=== PATIENT | female | born 1975 | race Hispanic/Latino ===

== ENCOUNTER 2020-11-21 13:38 | Outpatient (CLI) | payer OTHER, SELFPAY ==
--- NOTE | 2020-11-21 15:00 | NEURO_ITS ---
Impression: # Complains of right anterior thigh numbness # Normal nerve conduction study of lower extremities including motor and sensory nerves. # Normal needle/EMG exam. # Patchy numbness of thigh needs to be evaluated by MRI of lumbar spine or higher up. Nerve Conduction Studies Anti Sensory Summary Table Stim Site NR Peak (ms) P-T Amp (?V) Site1 Site2 Delta-P (ms) Dist (cm) Isaiah (m/s) Right Sup Fibular Anti Sensory (Ant Lat Mall) 14 cm 3.7 10.0 14 cm Ant Lat Mall 3.7 16.0 43 Right Sural Anti Sensory (Lat Mall) Calf 3.3 16.3 Calf Lat Mall 3.3 16.0 48 Motor Summary Table Stim Site NR Onset (ms) O-P Amp (mV) Site1 Site2 Delta-0 (ms) Dist (cm) Isaiah (m/s) Right Peroneal Motor (Vastus Med) Ankle 3.6 3.9 Popit Ankle 6.9 37.0 54 Popit 10.5 2.9 Right Tibial Motor (Abd Correa Brev) Ankle 3.8 3.7 Knee Ankle 7.9 41.0 52 Knee 11.7 2.1 F Wave Studies NR F-Lat (ms) L-R F-Lat (ms) Right Peroneal (Mrkrs) (EDB) 48.25 Right Tibial (Mrkrs) (Abd Hallucis) 48.59 EMG Side Muscle Nerve Root Ins Act Fibs Amp Dur Recrt Comment Right AntTibialis Dp Br Fibular L4-5 Nml Nml Nml Nml Nml Right Gastroc Tibial S1-2 Nml Nml Nml Nml Nml Right Fibularis Long Sup Br Fibular L5-S1 Nml Nml Nml Nml Nml Right Flex Dig Long Tibial L5-S2 Nml Nml Nml Nml Nml Right Ext Dig Brev Dp Br Fibular L5, S1 Nml Nml Nml Nml Nml MTDD
== END 2020-11-21 13:39 | disposition home or self-care (01) ==
PROVIDERS: PCP Physician Assistant; Visit Provider Physician Assistant
DX: R20.2 Paresthesia of skin (principal)
CPT/HCPCS: 95886; 95908

== ENCOUNTER 2021-10-12 12:40 | Emergency (ER) | payer SELFPAY ==
[2021-10-12] VITALS (18 sets, daily range): BP systolic 87–136; BP diastolic 57–78; PULSE 68–78; RESP 16–18; TEMP 36.4; O2SAT 99–100
--- NOTE | ~2021-10-12 | CT_ITS ---
EXAMINATION: CT abdomen pelvis w con DATE: 10/12/2021 15:29 INDICATION: Right lower quadrant abdominal pain. TECHNIQUE: Computed tomography (CT) of the abdomen and pelvis was performed with 100 mL Omnipaque 350 intravenous contrast. Automated exposure control and iterative reconstruction technique were employe d. The dose-length product was 1319.61 mGy-cm. COMPARISON: None. FINDINGS: The visualized portions of the lung bases demonstrate mild atelectasis. No pleural effusion . The heart size is normal. No pericardial effusion. The liver, gallbladder, spleen, pancreas, adrena l glands, and kidneys are normal. Tubal ligation clips are noted. There is a 2.9 cm cyst in right adn exa, likely a dominant follicle. There are nabothian cysts in the cervix. There are no dilated loops of bowel. The appendix is normal. There are no pathologically enlarged lymph nodes. There is no free intraperitoneal fluid. There is severe lower lumbar spondylosis. IMPRESSION: 1. No specific etiology for the patient's symptoms. Reviewed, dictated and finalized at location A. SSIONS GATE ATTENDANT
[2021-10-12 13:42] LABS: Add Urine Microscopic? NO; Appearance Urine Clear (Clear); Bilirubin Urine Negative (Negative); Blood Urine Negative (Negative); Color Urine Straw (Yellow); Glucose Urine UA Negative (Negative); Ketones Urine Negative (Negative); Leukocyte Esterase Ur Negative LEU/UL (Negative); Nitrate Urine Negative (Negative); Protein Urine Negative (Negative); Urobilinogen Urine Negative mg/dL (<2.0)
[2021-10-12 13:49] LABS: Specific Grav Ur 1.001 (1.001-1.035)
[2021-10-12 14:17] LABS: Basophils Percent Auto 0.6 % (0.2-1.2); Eosinophils Absolute Auto 0.2 K/mm3 (0-0.3); Eosinophils Percent Auto 2.1 % (0-4.4); Hematocrit 32.7 % (37.0-47.0); Hemoglobin 9.9 g/dL (12.0-15.0); Immature Granulocyte Absolute 0.04 K/mm3 (0.00-0.031); Immature Granulocyte Percent A 0.6 % (0-0.5); Lymphocytes Absolute Auto 1.76 K/mm3 (0.9-3.2); Lymphocytes Percent Auto 24.5 % (18.3-44.2); Mean Corpuscular HGB Conc 30.3 g/dl (32-36); Mean Corpuscular Hemoglobin 23.2 pg (26-34); Mean Corpuscular Volume 76.6 fl (80-100); Mean Platelet Volume 10.3 fl (7.4-10.4); Monocytes Absolute Auto 0.5 K/mm3 (0.1-0.6); Monocytes Percent Auto 7.4 % (2.6-8.5); Neutrophils Absolute Auto 4.7 K/mm3 (1.3-6.7); Neutrophils Percent Auto 64.8 % (45.5-73.1); Platelet Count Result 273 k/mm3 (150-375); Red Blood Count 4.27 M/mm3 (4.2-5.4); Red Cell Distribution Width 17.9 % (11.5-14.5); White Blood Count 7.2 K/mm3 (4.5-10.0)
[2021-10-12 14:36] LABS: Alanine Aminotransferase 17 U/L (4-35); Albumin Level 3.9 g/dL (3.5-5.1); Alkaline Phosphatase 93 U/L (38-126); Anion Gap 8 mmol/L (8-16); Aspartate Amino Transferase 25 U/L (14-36); Bilirubin,Total 0.3 mg/dL (0.2-1.3); Blood Urea Nitrogen 9 mg/dL (7-17); Calcium 8.7 mg/dL (8.4-10.2); Carbon Dioxide 25 mmol/L (22-30); Chloride 103 mmol/L (98-107); Estimated CRCL calculation 145 ml/min; Estimated Glomerular Filt Rate > 60; Glucose 94 mg/dL (65-110); Potassium 3.6 mmol/L (3.4-5.0); Sodium 136 mmol/L (137-145)
--- NOTE | 2021-10-12 15:18 | ED.BACK ---
HPI - Back Pain/Injury General Chief Complaint: Back Pain/Injury Stated Complaint: back pain Time Seen by Provider: 10/12/21 13:07 Source: patient and RN notes reviewed Mode of arrival: ambulatory Limitations: no limitations History of Present Illness HPI Narrative: This is a 46 year old female who presents for evaluation right lower back pain. Her pain started suddenly 4 hours ago while she was at work. Her pain has been intermittent. Initially her pain was sharp and now she describes as contractions. She is having left lower back pain that radiates to right lower abdomen with associated nausea and dizziness. She denies fever or chills. She denies hematuria, dysuria or dark urine. She denies history of ovarian cyst or kidney stone. She has not taken anything for pain but her pain has improved. She rates pain as 3/10. Related Data Home Medications Medication Instructions Recorded Confirmed No Home Medications 10/12/21 10/12/21 Allergies Allergy/AdvReac Type Severity Reaction Status Date / Time No Known Allergies Allergy Unverified 10/12/21 12:42 Review of Systems Review of Systems: All systems reviewed & are unremarkable except as noted in HPI and below PMFSH Past Medical History Medical History (Updated 10/12/21 @ 16:06 by Nya Felix MD) Anemia Surgical History Surgical History (Updated 10/12/21 @ 15:28 by Nya Felix MD) Hx of tubal ligation Social History Social History (Updated 10/12/21 @ 15:28 by Nya Felix MD) Smoking status: Never smoker Exam Const: General: no acute distress and alert Orientation/consciousness: patient oriented x3 Eyes: EOM: EOMs intact bilaterally Resp: Effort & Inspection: normal respiratory effort and no retractions Auscultation: clear to auscultation bilaterally Cardio: Rate: regular rate Rhythm: regular rhythm Heart sounds: no murmurs GI: GI Palp: Yes Soft to palpation, Yes Tenderness to palpation present (GI) and No Guarding due to palpation present (GI) Auscultation: normal bowel sounds : General: Yes no CVA tenderness Back/Spine/Pelvis: Back: no CVA tenderness Skin: General skin exam: normal color, no jaundice and no pallor Rashes: rash noted Wounds: no wounds and no wounds noted Neuro: General: patient oriented x3, moves all extremities and CN's II-XI intact bilaterally Extrem: General: normal to inspection Psych: Mental Status: mental status grossly normal Affect: normal affect Course Reevaluation(s) Reevaluation #1: I discussed with patient the she was found to have ovarian cyst. She is reporting that she was diagnosed with ovarian cyst before and she had some kind of evaluation. She is unable to described completely who she saw or how it was evaluated. 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 Date: 10/12/21 Time: 16:03 Vital Signs Vital signs: Vital Signs Temperature 97.6 F 10/12/21 12:42 Pulse Rate 68 10/12/21 12:42 Respiratory Rate 16 10/12/21 12:42 Blood Pressure 136/68 10/12/21 12:42 Pulse Oximetry 100 10/12/21 12:42 Temperature 97.6 F 10/12/21 12:42 Pulse Rate 68 10/12/21 16:18 Respiratory Rate 18 10/12/21 16:18 Blood Pressure 102/78 10/12/21 16:18 Pulse Oximetry 99 10/12/21 16:18 MDM - Back Pain/Injury Lab Data Attestation: I reviewed the patient's lab results. Result diagrams: 10/12/21 14:04 10/12/21 14:05 Labs: Lab Results 10/12/21 10/12/21 10/12/21 Range/Units 13:17 14:04 14:05 WBC 7.2 (4.5-10.0) K/mm3 RBC 4.27 (4.2-5.4) M/mm3 Hgb 9.9 L (12.0-15.0) g/dL Hct 32.7 L (37.0-47.0) % MCV 76.6 L (80-100) fl MCH 23.2 L (26-34) pg MCHC 30.3 L (32-36) g/dl RDW 17.9 H (11.5-14.5) % Plt Count 273 (150-375) k/mm3 MPV 10.3 (7.4-10.4) fl Immature Gran % (Auto) 0.6 H (0-0.5) % Neut % (Auto) 64.8 (45.5-73.1) % Lymph % (Auto) 24.5 (18.3-44.2) %
== END 2021-10-12 16:22 | disposition home or self-care (01) ==
PROVIDERS: Emergency Provider General Practice; PCP Physician Assistant
DX: N83.201 Unspecified ovarian cyst, right side (principal); R10.9 Unspecified abdominal pain; D64.9 Anemia, unspecified; Z98.51 Tubal ligation status
CPT/HCPCS: 36415; 74177; 80053; 81003; 81025; 85025; 99284; Q9967

== ENCOUNTER 2024-03-16 15:29 | Emergency (ER) | payer OTHER, SELFPAY ==
--- NOTE | ~2024-03-16 | XR_ITS ---
EXAMINATION: XR chest 2V DATE: 03/16/2024 16:13 INDICATION: Chest pain. TECHNIQUE: Frontal and lateral views of the chest were obtained. COMPARISON: CT abdomen and pelvis 10/12/2021 FINDINGS: There is no pneumonia, pleural effusion, or pneumothorax. The heart size is normal. There i s mild chronic anterior wedging of multiple thoracic vertebral bodies. IMPRESSION: 1. No acute cardiopulmonary disease. Reviewed, dictated and finalized at location A.
[2024-03-16 15:32] VITALS: BP 131/73; PULSE 16; RESP 16; TEMP 36.6; O2SAT 100
--- NOTE | 2024-03-16 15:34 | ECG_ITS ---
SEE SCANNED COPY FOR CONFIRMED REPORT MTDD
[2024-03-16 15:53] LABS: Basophils Percent Auto 0.6 % (0.2-1.2); Eosinophils Absolute Auto 0.4 K/mm3 (0-0.3); Eosinophils Percent Auto 5.8 % (0-4.4); Hematocrit 27.2 % (37.0-47.0); Hemoglobin 7.7 g/dL (12.0-15.0); Immature Granulocyte Absolute 0.03 K/mm3 (0.00-0.031); Immature Granulocyte Percent A 0.5 % (0-0.5); Lymphocytes Absolute Auto 1.67 K/mm3 (0.9-3.2); Lymphocytes Percent Auto 26.3 % (18.3-44.2); Mean Corpuscular HGB Conc 28.3 g/dl (32-36); Mean Corpuscular Hemoglobin 19.7 pg (26-34); Mean Corpuscular Volume 69.6 fl (80-100); Monocytes Absolute Auto 0.4 K/mm3 (0.1-0.6); Monocytes Percent Auto 6.3 % (2.6-8.5); Neutrophils Absolute Auto 3.8 K/mm3 (1.3-6.7); Neutrophils Percent Auto 60.5 % (45.5-73.1); Platelet Count Result 308 k/mm3 (150-375); Red Blood Count 3.91 M/mm3 (4.2-5.4); Red Cell Distribution Width 18.8 % (11.5-14.5); White Blood Count 6.3 K/mm3 (4.5-10.0)
[2024-03-16 16:03] LABS: Alanine Aminotransferase 16 U/L (6-35); Albumin Level 4.2 g/dL (3.5-5.1); Alkaline Phosphatase 89 U/L (38-126); Anion Gap 7 mmol/L (4-12); Aspartate Amino Transferase 23 U/L (14-36); Bilirubin,Total 0.3 mg/dL (0.2-1.3); Blood Urea Nitrogen 11 mg/dL (7-17); Carbon Dioxide 26 mmol/L (22-30); Chloride 106 mmol/L (98-107); Estimated CRCL calculation 89 ml/min; Estimated Glomerular Filt Rate > 60; Glucose 104 mg/dL (65-110); Lipase 93 U/L (23-300); Potassium 3.3 mmol/L (3.4-5.0); Sodium 139 mmol/L (137-145)
[2024-03-16 16:07] LABS: Prothrombin Time 13.7 Seconds (11.1-14.7)
[2024-03-16 16:08] LABS: Partial Thromboplastin Time 30.3 Seconds (22.3-36.8)
[2024-03-16 16:14] LABS: Hypochromasia 1+; Microcytosis 1+ (NORMAL); Platelet Estimate Adequate (Adequate); Schistocytes None Seen; Troponin I < 0.012 ng/mL (0.000-0.034)
[2024-03-16 16:15] LABS: Anisocytosis 3+
[2024-03-16 16:39] VITALS: BP 134/58; PULSE 73; RESP 19; O2SAT 100
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
[2024-03-16] MEDS: ACETAMINOPHEN 500 MG TABLET 1000 MG PO (18:37)
[2024-03-16] MEDS: KETOROLAC 30 MG/ML VIAL (*BKC) 15 MG IM (18:38)
[2024-03-16 18:40] VITALS: BP 129/95; PULSE 66; RESP 17; O2SAT 100
[2024-03-16 18:50] LABS: D Dimer 0.46 ug/mL (<0.48)
[2024-03-16 19:37] LABS: Troponin I < 0.012 ng/mL (0.000-0.034)
[2024-03-16] MEDS: POTASSIUM BICARBONATE 25 MEQ TABEF 50 MEQ PO (19:37)
[2024-03-16 19:42] LABS: Influenza A QL RT-PCR Negative (Negative); Influenza B QL RT-PCR Negative (Negative); RSV RNA, RT-PCR Negative (Negative); SARS-CoV-2 RNA PCR Negative (Negative)
[2024-03-16 20:00] LABS: Appearance Urine Cloudy (Clear); Bacteria Urine 1+ /hpf; Bilirubin Urine Negative (Negative); Blood Urine Negative (Negative); Color Urine Yellow (Yellow); Glucose Urine UA Negative (Negative); Ketones Urine Negative (Negative); Leukocyte Esterase Ur Trace LEU/UL (Negative); Nitrate Urine Negative (Negative); Non Pathogenic Casts 0-2; Protein Urine Negative (Negative); RBC Urine 0-2 /hpf (0-2); Specific Grav Ur 1.005 (1.001-1.035); Squamous Epithelial Cell Urine Moderate /hpf (Few); Urobilinogen Urine 0.2 mg/dL (<2.0)
[2024-03-16 20:17] LABS: Add Urine Microscopic? YES
[2024-03-16 20:22] VITALS: PULSE 64; RESP 16; O2SAT 100
[2024-03-16] MEDS: BELLADONNA ALK/PHENOB ELIX 10 ML, MAG HYDROX/ALUMINUM HYD/SIMETH 30 ML, LIDOCAINE HCL 2... PO (20:37)
[2024-03-16 21:03] VITALS: BP 130/77; PULSE 80; RESP 20; O2SAT 100
== END 2024-03-16 21:04 | disposition home or self-care (01) ==
PROVIDERS: Emergency Medicine; Emergency Provider Student in an Organized Health Care Education/Training Program; PCP Physician Assistant
DX: R07.89 Other chest pain (principal); R10.13 Epigastric pain; Z20.822 Contact with and (suspected) exposure to COVID-19; D64.9 Anemia, unspecified
CPT/HCPCS: 36415; 71046; 80053; 81001; 81025; 83690; 83735; 84443; 84484; 85025; 85380; 85610; 85730; 87086; 87088; 87637; 93005; 96372; 99284; A9270; J1885

== ENCOUNTER 2025-03-31 16:17 | Emergency (ER) | payer OTHER, SELFPAY ==
--- NOTE | ~2025-03-31 | CT_ITS ---
CLINICAL INDICATION: Upper abdominal pain and nausea COMPARISON: 10/12/2021. TECHNIQUE: Multiple contiguous axial images of the abdomen and pelvis were performed following the ad ministration of with 100 mL Omnipaque-350 intravenous contrast The dose-length product (DLP) was 1484.81 mGy-cm. Automated exposure control and iterative reconstruction technique were employed. FINDINGS/OBSERVATIONS: Visualized lower thorax: The bilateral lung bases are clear. The heart is of normal size, without pericardial effusion. Small hiatal hernia is present. Liver: The liver demonstrates homogeneous enhancement and is enlarged measuring 20 cm in longitudinal dimens ion. Gallbladder and biliary system: The gallbladder is only minimally distended, and otherwise unremarkable. Pancreas: The pancreas enhances homogeneously without ductal dilatation. Spleen: The spleen enhances homogeneously and is not enlarged. Kidneys: The bilateral kidneys enhance symmetrically without hydronephrosis or renal calculi. Adrenal glands: Unremarkable. Gastrointestinal tract: The stomach is significantly distended with gastric contents, consistent with patient's symptomatolog y. Mural thickening of the distal stomach/first portion of the duodenum, without surrounding inflammator y change. Multiple loops of fluid-filled hyperemic small bowel which is prominent in caliber without erin dila tation Appendix: The appendix is of normal caliber (axial series, images 127 through 146). Vasculature: Unremarkable. Lymph nodes: No pathologically enlarged or morphologically suspicious lymph nodes within the retroperitoneum or at the root of the mesentery. Pelvic structures: The bladder is distended, and otherwise unremarkable. The uterus is anteverted and anteflexed. Nabothian cysts are present. Body wall and musculoskeletal: Small fat-containing umbilical hernia. 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 IMPRESSION: Findings suggesting gastritis, as detailed above. Hepatomegaly is also noted. Reviewed, dictated and finalized at location A.
[2025-03-31 16:19] VITALS: BP 140/82; PULSE 73; RESP 18; TEMP 36.5; O2SAT 100
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
--- NOTE | 2025-03-31 16:25 | ECG_ITS ---
Test Date: 2025-03-31 16:31:50 Measurements Intervals [place] Rate: 74 P: 21 [place]: 146 QRS: 34 QRSD: 88 T: 39 QT: 366 QTc: 407 Interpretive Statements SINUS RHYTHM LOW QRS VOLTAGE IN PRECORDIAL LEADS [QRS DEFLECTION < 1.0 mV IN CHEST LEADS] No previous ECG available for comparison Electronically Signed On 04-01-2025 17:06:59 CDT by Duke Norris M.D.
[2025-03-31 16:44] LABS: Basophils Absolute Auto 0.1 K/mm3 (0.0-0.1); Basophils Percent Auto 0.7 % (0.2-1.2); Eosinophils Absolute Auto 0.1 K/mm3 (0-0.3); Eosinophils Percent Auto 1.9 % (0-4.4); Hematocrit 33.1 % (37.0-47.0); Hemoglobin 9.8 g/dL (12.0-15.0); Immature Granulocyte Absolute 0.02 K/mm3 (0.00-0.031); Immature Granulocyte Percent A 0.3 % (0-0.5); Lymphocytes Absolute Auto 2.22 K/mm3 (0.9-3.2); Lymphocytes Percent Auto 30.3 % (18.3-44.2); Mean Corpuscular HGB Conc 29.6 g/dl (32-36); Mean Corpuscular Hemoglobin 21.4 pg (26-34); Mean Corpuscular Volume 72.1 fl (80-100); Mean Platelet Volume 10.1 fl (7.4-10.4); Monocytes Absolute Auto 0.5 K/mm3 (0.1-0.6); Monocytes Percent Auto 6.5 % (2.6-8.5); Neutrophils Absolute Auto 4.4 K/mm3 (1.3-6.7); Neutrophils Percent Auto 60.3 % (45.5-73.1); Platelet Count Result 341 k/mm3 (150-375); Red Blood Count 4.59 M/mm3 (4.2-5.4); Red Cell Distribution Width 17.8 % (11.5-14.5); White Blood Count 7.3 K/mm3 (4.5-10.0)
[2025-03-31 16:53] LABS: Alanine Aminotransferase 27 U/L (6-35); Albumin Level 4.7 g/dL (3.5-5.1); Alkaline Phosphatase 108 U/L (38-126); Anion Gap 11 mmol/L (4-12); Aspartate Amino Transferase 35 U/L (14-36); Bilirubin,Total 0.3 mg/dL (0.2-1.3); Blood Urea Nitrogen 14 mg/dL (7-17); Calcium 9.5 mg/dL (8.4-10.2); Carbon Dioxide 23 mmol/L (22-30); Chloride 101 mmol/L (98-107); Estimated CRCL calculation 90 ml/min; Estimated Glomerular Filt Rate > 60; Glucose 113 mg/dL (65-110); Lipase 92 U/L (23-300); Potassium 3.3 mmol/L (3.4-5.0); Sodium 135 mmol/L (137-145)
[2025-03-31 17:04] LABS: Troponin I < 0.012 ng/mL (0.000-0.034)
[2025-03-31 17:08] LABS: Platelet Estimate Slightly Increased (Adequate)
[2025-03-31 17:09] LABS: Giant Platelets Present; Hypochromasia 1+; Large Platelets Present; Microcytosis 1+ (NORMAL); Schistocytes None Seen
--- NOTE | 2025-03-31 17:26 | ED.ABDPAIN ---
HPI - Abdominal Pain General Chief Complaint: Abdominal Pain Stated Complaint: Abdominal pain Time Seen by Provider: 03/31/25 17:21 Source: patient Mode of arrival: ambulatory Limitations: no limitations History of Present Illness HPI narrative: This is a 49-year-old female that presents to the emergency department for epigastric abdominal discomfort. Reports he had just eaten some spicy food. Has burning pain in the epigastrium. Reports associated nausea. She does have history of heartburn. She did not take any medications prior to arrival. Denies fevers, vomiting, dysuria, diarrhea. Related Data Allergies Allergy/AdvReac Type Severity Reaction Status Date / Time No Known Allergies Allergy Unverified 03/31/25 16:18 Review of Systems Review of Systems: CONSTITUTIONAL: Denies fever GASTROINTESTINAL: Reports abdominal pain, nausea. Denies vomiting, or diarrhea. GENITOURINARY: Denies dysuria All systems reviewed & are unremarkable except as noted in HPI and below PMFSH Past Medical History Medical History (Updated 03/31/25 @ 19:29 by Adalgisa Esquivel PA-C) Anemia Surgical History Surgical History (Updated 10/12/21 @ 15:28 by Nya Felix MD) Hx of tubal ligation Social History Social History (Updated 10/12/21 @ 15:28 by Nya Felix MD) Smoking status: Never smoker Substance use type: does not use Exam Narrative: GENERAL: Well-appearing, well-nourished, and in no acute distress. HEAD: Normocephalic, atraumatic. EYES: EOMI. CHEST: Clear to auscultation. No respiratory distress. No wheezes rales or rhonchi HEART: Regular rate and rhythm. No murmur heard. Normal peripheral pulses. ABDOMEN: Soft, nondistended, normal active bowel sounds. Tender to palpation in the epigastrium, without guarding EXTREMITIES: Normal range of motion. No edema. SKIN: Warm, dry, no rash. NEURO: No focal deficits. Alert and oriented x3. PSYCH: Normal mood and affect Course Course Emergency Course: Patient updated on her workup and agrees with plan of care Vital Signs Vital signs: Vital Signs Temperature 97.7 F 03/31/25 16:19 Pulse Rate 73 03/31/25 16:19 Respiratory Rate 18 03/31/25 16:19 Blood Pressure 140/82 03/31/25 16:19 Pulse Oximetry 100 03/31/25 16:19 Oxygen Delivery Room Air 03/31/25 16:19 Temperature 97.7 F 03/31/25 16:19 Pulse Rate 73 03/31/25 16:19 Respiratory Rate 18 03/31/25 16:19 Blood Pressure 140/82 03/31/25 16:19 Pulse Oximetry 100 03/31/25 16:19 Oxygen Delivery Room Air 03/31/25 16:19 MDM - Abdominal Pain MDM Narrative Medical decision making narrative: Patient presents the emergency department for epigastric abdominal pain, nausea. She is afebrile and nontoxic appearing. Cbc without leukocytosis. Metabolic panel with mild hypokalemia. Magnesium is normal. Urine without evidence of infection. Does show red blood cells, patient is currently on her menstrual cycle. CT abdomen and pelvis shows findings suggestive of gastritis. Patient given Zofran, Pepcid, Protonix with improvement. Will be continued on Protonix and given follow-up with gastroenterology. She was given warnings to return to the ER Differential Diagnosis Differential diagnosis: Likely pancreatitis and other (GERD, gastritis, esophagitis, biliary colic) Lab Data Attestation: I reviewed the patient's lab results. 03/31/25 16:37 03/31/25 16:37 Labs: Lab Results 03/31/25 03/31/25 03/31/25 Range/Units 16:36 16:37 17:30 WBC 7.3 (4.5-10.0) K/mm3 RBC 4.59 (4.2-5.4) M/mm3 Hgb 9.8 L (12.0-15.0) g/dL Hct 33.1 L (37.0-47.0) % MCV 72.1 L (80-100) fl MCH 21.4 L (26-34) pg MCHC 29.6 L (32-36) g/dl RDW 17.8 H (11.5-14.5) % Plt Count 341 (150-375) k/mm3 MPV 10.1 (7.4-10.4) fl Immature Gran % (Auto) 0.3 (0-0.5) % Neut % (Auto) 60.3 (45.5-73.1) % Lymph % (Auto) 30.3 (18.3-44.2) % [place] % (Auto) 6.5 (2.6-8.5) % Eos % (Auto) 1.9 (0-4.4) % Baso % (Auto) 0.7 (0.2-1.2) % Lymph # (Auto) 2.22 (0.9-3.2) K/mm3 [place] # (Auto) 0.5 (0.1-0.6) K/mm3 Eos # (Auto) 0.1 (0-0.3) K/mm3 Baso # (Auto) 0.1 (0.0-0.1) K/mm3 Abs Immat Gran (auto) 0.02 (0.00-0.031) K/mm3 Absolute Neuts (auto) 4.4 (1.3-6.7) K/mm3 Absolute Nucleated RBC 0.000 (0.0-0.012) K/mm3 Band Neutrophils % Not Reportable Nucleated RBC % 0.0 (0.0-0.2) % Platelet Estimate Slightly increased (Adequate) Large Platelets Present Giant Platelets Present Hypochromasia 1+ Microcytosis 1+ (NORMAL) Schistocytes None seen Sodium 135 L (137-145) mmol/L Potassium 3.3 L (3.4-5.0) mmol/L Chloride 101 (98-107) mmol/L Carbon Dioxide 23 (22-30) mmol/L Anion Gap 11 (4-12) mmol/L BUN 14 (7-17) mg/dL Creatinine 0.72 (0.7-1.0) mg/dL Estim Creat Clear Calc 90 ml/min Estimated GFR > 60 (59 - ) Glucose 113 H (65-110) mg/dL Calcium 9.5 (8.4-10.2) mg/dL Magnesium 1.9 (1.6-2.3) mg/dL Total Bilirubin 0.3 (0.2-1.3) mg/dL AST 35 (14-36) U/L ALT 27 (6-35) U/L Alkaline Phosphatase 108 (38-126) U/L Troponin I < 0.012 (0.000-0.034) ng/mL Total Protein 8.0 (6.3-8.2) g/dL Albumin 4.7 (3.5-5.1) g/dL Lipase 92 (23-300) U/L Urine Color [place] H (Yellow) Urine Appearance Clear (Clear) Urine pH >=9.0 H (5.0-9.0) Ur Specific [place] 1.018 (1.001-1.035) Urine Protein 2+ H (Negative) mg/dL Urine Glucose (UA) Negative (Negative) mg/dL Urine Ketones Trace H (Negative) mg/dL Ur Blood (Man) 3+ H (Negative) Urine Nitrate Negative (Negative) Urine Bilirubin Negative (Negative) Urine Urobilinogen 1.0 (<2.0) mg/dL Leukocyte Esterase Rfl Trace H (Negative) KATHRINE/UL Urine RBC >100 H (0-2) /hpf Urine WBC 0-5 (0-3) /hpf Ur Squamous Epith Cells Occasional (Few) /hpf Urine Bacteria None seen /hpf Urine Casts 0-2 Imaging Data Radiologist's impression: ITS Impressions Abdomen/Pelvis CT 03/31/25 18:30 IMPRESSION: Findings suggesting gastritis, as detailed above. Hepatomegaly is also noted. ECG Data EKG #1: ECG completion date: 03/31/25 normal rate, sinus rhythm, no ST changes and normal QT Critical Care Time Critical Care Time Critical Care Time: No Discharge Plan Discharge Clinical Impression: Hypokalemia Gastritis Qualifiers: Gastritis type: unspecified gastritis Chronicity: acute Gastritis bleeding: without bleeding Qualified Code(s): K29.00 - Acute gastritis without bleeding Patient Disposition: Home Condition: Improved Instructions: Gastritis (ED), Diet for Stomach Ulcers and Gastritis (ED) Additional Instructions: Return to the ER if you experience fever, abdominal pain with nausea and vomiting, you are unable to keep down liquids or solids, or any other symptoms that are concerning to you Your potassium was mildly low today, I have sent a prescription for replacement Remain well hydrated. Avoid spicy/acidic foods. Avoid alcohol. Avoid anti-inflammatories. Avoid eating just before bedtime. Take Protonix as prescribed Follow up with your primary care doctor and/or gastroenterology Patient Language: Prydeinig Prescriptions: New pantoprazole [Protonix] 40 mg tablet,delayed release (DR/EC) 40 mg PO HS 28 Days Qty: 28 0RF potassium chloride [Klor-Con M20] 20 mEq tablet,ER particles/crystals 20 meq PO DAILY 3 Days Qty: 3 0RF No Action famotidine [Pepcid] 40 mg tablet 40 mg PO DAILY 30 Days Qty: 30 0RF Follow-up/Referrals: [place],HARMONY Saavedra [Primary Care Provider] - Hima Almaraz MD [Physician] -
[2025-03-31] MEDS: ONDANSETRON INJ 4 MG/2 ML VIAL IV PUSH (17:42)
[2025-03-31] MEDS: FAMOTIDINE 20 MG/2 ML VIAL IV PUSH (17:43)
[2025-03-31] MEDS: MORPHINE SULFATE (*CRX) 4 MG/ML INJ IV PUSH (17:45)
--- OUTSIDE RECORDS SUMMARY | 2025-03-31 17:50 | XMS_ITS | CONTINUITY OF CARE DOCUMENT ---
Author Name carmella weir Address Unknown Organization [facility] Address [address] [place] [address] Phone [phone] Care Team Providers Care Fitter Helper Name Role Phone Nathan BUENROSTRO, Cl Unavailable Katy Norris Unavailable Katy Norris Unavailable PROBLEMS Condition Status Date Provider Notes Family History of CVA or Stroke: active ? 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 Cl Evans MD smoking status Never smoker Stevo Bowles FAMILY HISTORY Family Member Condition Father Family History of CV A or Stroke: INSURANCE PROVIDERS Payer name Policy type / Coverage type [place] red constitution party ID SELF PAY [id number] ADVANCE DIRECTIVES Name Date DISCUSSED - NO DECISION MADE TREATMENT PLAN Date Name Performer Cardiology Cl Evans MD Cardiology Cl Evans MD Cardiology Cl Evans MD HISTORY OF PROCEDURES Procedure Date Procedure Name Provider Procedure Notes S tatus EKG Cl Evans MD complete d
[2025-03-31 17:54] LABS: Bacteria Urine None Seen /hpf; Non Pathogenic Casts 0-2; RBC Urine >100 /hpf (0-2); Squamous Epithelial Cell Urine Occasional /hpf (Few); WBC Urine 0-5 /hpf (0-3)
[2025-03-31 18:02] LABS: Add Urine Microscopic? YES; Appearance Urine Clear (Clear); Bilirubin Urine Negative (Negative); Blood Urine 3+ (Negative); Color Urine Orange (Yellow); Glucose Urine UA Negative (Negative); Ketones Urine Trace mg/dL (Negative); Leukocyte Esterase Ur Trace LEU/UL (Negative); Nitrate Urine Negative (Negative); Protein Urine 2+ mg/dL (Negative); Specific Grav Ur 1.018 (1.001-1.035); pH Urine >=9.0 (5.0-9.0)
--- NOTE | 2025-03-31 18:23 | PC.NURSE ---
Called and s poke with Kwame, aware of Mag add on at this time.
[2025-03-31 18:33] LABS: Magnesium 1.9 mg/dL (1.6-2.3)
[2025-03-31] MEDS: PANTOPRAZOLE SODIUM IV 40 MG VIAL IV PUSH (19:45)
[2025-03-31 20:00] VITALS: BP 116/86; PULSE 72; RESP 16; O2SAT 100
== END 2025-03-31 20:20 | disposition home or self-care (01) ==
PROVIDERS: Registered Nurse; Emergency Provider Physician Assistant; PCP Physician Assistant
DX: K29.00 Acute gastritis without bleeding (principal); E87.6 Hypokalemia
CPT/HCPCS: 36415; 74177; 80053; 81001; 83690; 83735; 84484; 85025; 93005; 96374; 96375; 99284; J2270; J2405; J2470; Q9967